=== PATIENT | female | born 1950 ===

== ENCOUNTER 2018-03-28 14:54 | Emergency (ER) | payer MEDICAID, OTHER ==
[2018-03-28 15:26] VITALS: RESP 18; TEMP 98; BMI 25.2
[2018-03-28] MEDS ORDERED: TDAP Vaccine 0.5 mL Syr IM ONE (15:28)
[2018-03-28] MEDS ORDERED: Tmp-Smz 800 mg-160 mg DS Tab PO STA (15:39)
--- NOTE | 2018-03-28 15:43 | ED PDOC ---
Arrival/HPI - General Chief Complaint: Abnormal Skin Integrity Time Seen by Provider: 03/28/18 15:14 Historian: Patient EM Caveat: Language Barrier (hebrew speaking) - History of Present Illness Narrative History of Present Illness (Text): 03/28/18 15:17 pt p/w 4 days onset of worsening b/l arm rashes; pt was in the yard working with his friend clearing a bunch of bushes/plants; pt was wearing a short sleeve shirt; pt states the next day noticed the rashes, + puritic, pt used OTC poison farnk medications without any improvements; pt states he noted some blisters and it popped with some yellow/clear discharge; non-bloody; no fever/ chills/sweats, no cp/sob/palpitations, no abd pain, no n/v, no numbness/tingling , no fall/trauma/sick contact, no travel; pt arrived today for further eval; pt' s without other complaints. PCP: NONE tetanus: unknown status Time/Duration: < week (4 days) Symptom Onset: Sudden Symptom Course: Worsening Severity Level: Severe Activities at Onset: Rest Context: Home Past Medical History - Provider Review Nursing Documentation Reviewed: Yes - Travel History Have you recently traveled outside [place] w/in the past 3 mons?: No - Past History Past History: No Previous - Infectious Disease Hx of Infectious Diseases: None - Tetanus Immunization Tetanus Immunization: Unknown - Reproductive Menopause: No Currently : No Family/Social History - Physician Review Nursing Documentation Reviewed: Yes Family/Social History: No Known Family HX Smoking Status: Unknown If Ever Smoked Hx Alcohol Use: No Hx Substance Use: No Hx Substance Use Treatment: No Allergies/Home Meds Allergies/Adverse Reactions: Allergies No Known Allergies Allergy (Verified 03/28/18 15:27) Review of Systems - Review of Systems Constitutional: Normal Eyes: Normal ENT: Normal Respiratory: Normal. absent: SOB Cardiovascular: Normal. absent: Chest Pain, Syncope Gastrointestinal: Normal. absent: Abdominal Pain, Nausea, Vomiting Genitourinary Female: Normal Musculoskeletal: Normal Skin: Rash, Pruritis, Skin Lesions. absent: Laceration, Abscess, Cellulitis Neurological: absent: Headache, Dizziness, Speech Changes Endocrine: Normal. absent: Diaphoresis Hemo/Lymphatic: Normal. absent: Adenopathy Psychiatric: Normal Physical Exam - Physical Exam Narrative Physical Exam (Text): 03/28/18 15:15 General: alert/awake, GCS = 15, oriented x 3, sitting in bed, uncomfortable, cooperative, interactive; NAD Head: NC/AT EYE: PERRLA, EOMI, sclera anicteric, no nystagmus, no photophobia; visual field intact b/l Facial: WNL Oral: uvula/tongue are midline, no exudate/lesions, no drooling/stridor, no dysphonia; intact dentitions; moist oral mucosa NECK: intact ROM, no midline tenderness, no nuchal rigidity, no meningeal signs ; no step off Chest: CTA b/l, no w/r/r; no tachypenia, no accessory muscle use noted Chest Wall: no crepitus, no lesions, no gross deformities, no focal tenderness Cardiac: +S1, +S2, no m/r/r, no tachycardia Abdominal: +BS, soft/nd/nt, well nourished patient; no masses/rebound/guarding/ rigidity; no norwood's sign, no mcburney's point tenderness Extremities: intact ROM, strength 5/5 grossly intact in all limbs, neurovasc intact b/l; + ambulatory; reflex +2/2 BACK: no step off, no midline tenderness, NO crepitus, no gross deformities noted; Intact ROM SKIN: cap refill < 1 sec, + clusters of faintly ulcerated lesions to right mid forearm, no petechiae, non-tender, + diffuse b/l forearm skin rashes with erythematous base and raised blister-like lesions; NON-fluctuant/non-weeping, non-painful up to near elbow region; + mildly puritic; NO NIKOSKY's sign noted; no discharge is noted currently NEURO: CNII-XII WNL, no facial asymmetries, no slurr speech, oriented x 3 NIH stroke scale ~ 0 Psych: normal insight, normal affect; follows command with ease Vital Signs Temp Pulse Resp BP Pulse Ox 03/28/18 16:20 98 F 75 18 140/68 98 03/28/18 16:17 75 18 144/75 100 03/28/18 15:25 98 F 79 18 156/87 H 100 Temperature: Afebrile Blood Pressure: Hypertensive Pulse: Regular Respiratory Rate: Normal Appearance: Positive for: Well-Appearing, Non-Toxic, Uncomfortable. No: Ill- Appearing, Unkept Pain Distress: None Mental Status: Positive for: Alert and Oriented X 3 - Systems Exam Head: Present: Atraumatic, Normocephalic Medical Decision Making ED Course and Treatment: 03/28/18 15:15 Impression: arm rashes i have consider all the differential diagnosis regarding pt's chief medical complaints/clinical findings, including but are not limited to: b/l arm rashes A/P: likely contact dermatitis - uptdate on tetanus - supportive care - observe/reevaluation Re-evaluation Time: 15:45 Reassessment Condition: Unchanged - Medication Orders Current Medication Orders: Discontinued Medications Diphenhydramine HCl (Benadryl) 25 mg PO ONCE ONE Stop: 03/28/18 15:34 Last Admin: 03/28/18 16:06 Dose: 25 mg Prednisone (Prednisone Tab) 60 mg PO STAT ONE Stop: 03/28/18 15:33 Last Admin: 03/28/18 16:07 Dose: 60 mg Tetanus/Reduced Diphtheria/Acell Pertussis (Boostrix Vaccine Inj) 0.5 ml IM .ONCE ONE Stop: 03/28/18 15:29 Last Admin: 03/28/18 16:07 Dose: 0.5 ml [facility] Immunization Data Document 03/28/18 16:07 [place] (Rec: 03/28/18 16:08 [place] [id number]) Immunization Data Vaccine Information Sheet Given Yes Trimethoprim/Sulfamethoxazole (Bactrim Ds Tab) 1 tab PO STAT STA PRN Reason: Protocol Stop: 03/28/18 15:40 Last Admin: 03/28/18 16:07 Dose: 1 tab Disposition/Present on Arrival - Present on Arrival Any Indicators Present on Arrival: No History of DVT/PE: No History of Uncontrolled Diabetes: No Urinary Catheter: No History of Decub. Ulcer: No History Surgical Site Infection Following: None - Disposition Have Diagnosis and Disposition been Completed?: Yes Diagnosis: Contact dermatitis, Rash, Elevated blood pressure reading Disposition: HOME/ ROUTINE Disposition Time: 15:55 Patient Plan: Discharge Condition: STABLE Discharge Instructions (ExitCare): Contact Dermatitis (DC), Skin Rash, Prehypertension, Hypertension (ED) Print Language: YI Additional Instructions: Make sure to see your doctor in 1-2 days DRINK PLENTY OF FLUIDS take your medications as prescribed DONT SCRACTH YOUR SKIN DONT POP any blisters KEEP OUT OF THE SUN WEAR LONG SLEEVE SHIRTS RETURN TO ED IF worse pain, cant breath, skin discoloration; persistent vomiting , high fever >101-102 for hours, altered behavior, slurr speech, facial changes , focal weakness (arm/leg or both), unable to urinate, heavy/persistent bleeding , passing out, chest pain, or other medical emergencies Prescriptions: DiphenhydrAMINE [Benadryl] 25 mg PO TID PRN #30 cap PRN Reason: Itching / Pruritus predniSONE [predniSONE Tab] 2 tab PO DAILY #8 tab Sulfamethoxazole/Trimethoprim [Bactrim DS 800 mg-160 mg] 1 tab PO BID #13 tab Triamcinolone 0.025 % [Triamcinolone 0.025 % Cream] 1 appl EXT BID #1 tube Referrals: PCP,NO [Primary Care Provider] - Follow up with primary [email or web address] [place] [Outside] - Follow up with primary [facility] [Outside] - Follow up with primary [facility] [place] - Follow up with primary Forms: [employer] (Kosovan)
[2018-03-28 16:18] VITALS: PULSE 75
[2018-03-28 16:37] VITALS: BP 140/68; O2SAT 98
== END 2018-03-28 16:20 | disposition home or self-care (01) ==
LOC: ED 14:54
DX: L25.9 Unspecified contact dermatitis, unspecified cause (principal); R03.0 Elevated blood-pressure reading, without diagnosis of hypertension; Z23 Encounter for immunization

== ENCOUNTER 2018-11-30 14:17 | Inpatient (IN) | payer MEDICAID, OTHER ==
[2018-11-30 14:18] VITALS: BMI 24.3
--- NOTE | 2018-11-30 14:30 | ED PDOC ---
Arrival/HPI - General Historian: Patient, Family - History of Present Illness Narrative History of Present Illness (Text): 11/30/18 15:18 68 y/o male with PSH of right inguinal hernia repair 2 weeks ago presents to the ED as he was concerned of red colored discharge coming out of surgical incision. He denied fever, chills, nausea, vomiting, abdominal pain, changes in bowel movement. He ambulates with no difficulty and pain is controlled with Ibuprofen. Patient was seen by his surgeon at [facility] yesterday for post-op follow up and he was assured by the surgeon. Patient denied CP, SOB, headache, dizziness, urinary symptoms, focal neurological symptoms. Time/Duration: 24 hours Context: Home <Rich [place] - Last Filed: 11/30/18 19:25> <Marcial Aguero - Last Filed: 11/30/18 19:44> - General Chief Complaint: Wound Check Time Seen by Provider: 11/30/18 14:21 Past Medical History - Provider Review Nursing Documentation Reviewed: Yes - Past History Past History: No Previous - Infectious Disease Hx of Infectious Diseases: None - Tetanus Immunization Tetanus Immunization: Unknown - Cardiac Hx Cardiac Disorders: No - Pulmonary Hx Respiratory Disorders: No - Neurological Hx Neurological Disorder: No - HEENT Hx HEENT Disorder: No - Renal Hx Renal Disorder: No - Endocrine/Metabolic Hx Endocrine Disorders: Yes Hx Diabetes Mellitus Type 2: Yes - Hematological/Oncological Hx Blood Disorders: No - Integumentary Hx Dermatological Disorder: No - Musculoskeletal/Rheumatological Hx Musculoskeletal Disorders: No - Gastrointestinal Hx Gastrointestinal Disorders: No - Genitourinary/Gynecological Hx Genitourinary Disorders: No - Psychiatric Hx Psychophysiologic Disorder: No Hx Substance Use: No - Surgical History Hx Inguinal Hernia Repair: Yes (11/19/18) - Anesthesia Hx Anesthesia: No <Rich Beach - Last Filed: 11/30/18 19:25> Family/Social History - Physician Review Nursing Documentation Reviewed: Yes Family/Social History: No Known Family HX Smoking Status: Never Smoked Hx Alcohol Use: Yes Hx Substance Use: No Hx Substance Use Treatment: No <Rich Beach - Last Filed: 11/30/18 19:25> Allergies/Home Meds <Rich [place] - Last Filed: 11/30/18 19:25> <Marcial Aguero - Last Filed: 11/30/18 19:44> Allergies/Adverse Reactions: Allergies No Known Allergies Allergy (Verified 06/10/18 13:46) Home Medications: Home Meds Medication Instructions Recorded Confirmed No Known Home Med 06/10/18 06/10/18 Review of Systems - Review of Systems Constitutional: Normal. absent: Fevers, Night Sweats Eyes: Normal ENT: Normal Respiratory: Normal Cardiovascular: Normal Gastrointestinal: Normal. absent: Abdominal Pain, Stool Changes, Constipation, Diarrhea, Nausea, Vomiting, Hematochezia, Hematemesis Genitourinary Male: Normal. absent: Dysuria, Frequency, Hematuria Musculoskeletal: Normal Skin: Normal Neurological: Normal Endocrine: Normal Hemo/Lymphatic: Normal Psychiatric: Normal <Rich Beach - Last Filed: 11/30/18 19:25> Physical Exam Vital Signs Reviewed: Yes Temperature: Afebrile Blood Pressure: Normal Pulse: Regular Respiratory Rate: Normal Appearance: Positive for: Well-Appearing, Non-Toxic, Comfortable Pain Distress: None Mental Status: Positive for: Alert and Oriented X 3 - Systems Exam Head: Present: Atraumatic, Normocephalic Pupils: Present: PERRL Extroacular Muscles: Present: EOMI Conjunctiva: Present: Normal Mouth: Present: Moist Mucous Membranes Neck: Present: Normal Range of Motion Respiratory/Chest: Present: Clear to Auscultation, Good Air Exchange. No: Respiratory Distress, Accessory Muscle Use Cardiovascular: Present: Regular Rate and Rhythm, Normal S1, S2 Abdomen: Present: Normal Bowel Sounds, Scars (right grion surgical incision, clean, non tender, no erythema, +discharge, no pus). No: Tenderness, Distention, Rebound, Guarding Upper Extremity: Present: Normal Inspection. No: Edema Lower Extremity: Present: Normal Inspection. No: Edema Neurological: Present: GCS=15, CN II-XII Intact, Speech Normal Skin: Present: Warm, Dry, Normal Color. No: Rashes Psychiatric: Present: Alert, Oriented x 3, Normal Insight <Rich Beach - Last Filed: 11/30/18 19:25> Vital Signs Temp Pulse Resp BP Pulse Ox 11/30/18 17:06 98.1 F 61 16 134/69 100 11/30/18 14:38 98.2 F 76 18 141/72 100 <Marcial Aguero - Last Filed: 11/30/18 19:44> Medical Decision Making ED Course and Treatment: 11/30/18 18:54 patient seen fir right lower groin pain and discharge stemming from postop wound for inguinal hernia surgery at [facility]. 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 Case was consulted and discussed with surgery and states will keep patient in hospital for dr. benjamin to see patient in the morning to determine surgical course. 11/30/18 19:[address] lopez to the hospitalist service. - RAD Interpretation Narrative RAD Interpretations (Text): EXAM: CT Pelvis and Hip, right, without IV contrast. Electronically signed on Nov 30, 2018 6:06:08 PM EST by: Oliver Landis M.D., IMPRESSION: 1. 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 2. Prostatic hypertrophy. 3. Incidental discovery of a 1.1 cm bone island in the right femoral head. Radiology Orders: 11/30/18 15:36 PELVIS W/O PO OR IV CONTRAST [CT] Stat Associate Professor Of Medicine: Radiologist <Marcial Aguero - Last Filed: 11/30/18 19:44> Disposition/Present on Arrival - Present on Arrival Any Indicators Present on Arrival: No History of DVT/PE: No History of Uncontrolled Diabetes: No Urinary Catheter: No History Surgical Site Infection Following: None - Disposition Patient Plan: Discharge <Rich Beach - Last Filed: 11/30/18 19:25> - Disposition Have Diagnosis and Disposition been Completed?: Yes Disposition Time: 18:56 Patient Plan: Admission <Marcial Aguero - Last Filed: 11/30/18 19:44> - Disposition Diagnosis: Post-operative complication, Postoperative wound abscess, Enterocutaneous fistula Disposition: HOSPITALIZED Patient Problems: Current Active Problems Problem Status Onset Post-operative complication Acute Postoperative wound abscess Acute Enterocutaneous fistula Acute Condition: STABLE Referrals: FAMILY PROVIDER,NO [Primary Care Provider] - Follow up with primary Forms: [employer] (Faroese)
[2018-11-30 16:03] LABS: BASO # 0.05 K/mm3 (0.0-2.0); BASO % 0.6 % (0.0-3.0); EOS # 0.2 (0.0-0.7); EOS % 1.9 % (1.5-5.0); HEMOGLOBIN 12.7 g/dL (14.0-18.0); LYMPH # 2.5 (1.2-3.4); LYMPH % 30.9 % (22.0-35.0); MEAN CELL VOLUME 91.1 fl (80.0-105.0); MEAN CORPUSCULAR HEMOGLOBIN 29.8 pg (25.0-35.0); MEAN CORPUSCULAR HGB CONC 32.7 g/dl (31.0-37.0); MEAN PLATELET VOLUME 9.7 fl (7.0-11.0); MONO # 0.4 (0.1-0.6); MONO % 4.5 % (1.0-6.0); RBC 4.26 10^6/uL (3.5-6.1); WHITE BLOOD COUNT 8.1 10^3/uL (4.5-11.0)
[2018-11-30 16:14] LABS: BLOOD UREA NITROGEN 16 mg/dL (7-21); CALCIUM 9.5 mg/dL (8.4-10.5); GFR NON-AFRICAN AMERICAN > 60
[2018-11-30] MEDS ORDERED: Piperacillin/Tazobact 3.375 gm 100 ML IVPB STA (18:52)
[2018-11-30] MEDS ORDERED: Vancomycin 500 mg Inj IVPB STA (18:52)
[2018-11-30] MEDS ORDERED: Vancomycin 1gm in NS 250ml 1 GM/250 ML BAG IVPB STA (18:54)
--- NOTE | 2018-11-30 19:05 | CP.PCM.CON ---
<GaDelores evans - Last Filed: 12/01/18 20:19> History of Present Illness - History of Present Illness History of Present Illness: General surgery consult note for Dr. Jansen Consulted for sanguinopurulent drainage from recent surgical site Patient is a 68 M with PMH Dm who recently underwent open Right inguinal hernia repair at [facility] 10 days ago. Patient was recently seen by his surgeon earlier this week but became concerned when he began to have discharge form the incision site today. Patient otherwise denies any f/c, n/v, abdominal pain, pain at the incision site, and change in stools. PMH: DM PSH: POD from open R inguinal hernia All: NKDA Social: denies Review of Systems - Review of Systems All systems: reviewed and no additional remarkable complaints except (as per HPI) Past Patient History - Infectious Disease Hx of Infectious Diseases: None - Tetanus Immunizations Tetanus Immunization: Unknown - Past Social History Smoking Status: Never Smoked - CARDIAC Hx Cardiac Disorders: No - PULMONARY Hx Respiratory Disorders: No - NEUROLOGICAL Hx Neurological Disorder: No - HEENT Hx HEENT Problems: No - RENAL Hx Chronic Kidney Disease: No - ENDOCRINE/METABOLIC Hx Endocrine Disorders: Yes Hx Diabetes Mellitus Type 2: Yes - HEMATOLOGICAL/ONCOLOGICAL Hx Blood Disorders: No - INTEGUMENTARY Hx Dermatological Problems: No - MUSCULOSKELETAL/RHEUMATOLOGICAL Hx Musculoskeletal Disorders: No - GASTROINTESTINAL Hx Gastrointestinal Disorders: No - GENITOURINARY/GYNECOLOGICAL Hx Genitourinary Disorders: No - PSYCHIATRIC Hx Psychophysiologic Disorder: No Hx Substance Use: No - SURGICAL HISTORY Hx Surgeries: No - ANESTHESIA Hx Anesthesia: No Meds Home Medications: Home Medication List Medication Instructions Recorded Confirmed Type Amoxicillin/Clavulanate [Augmentin 1 tab PO BID 7 Days #14 tab 12/01/18 Rx 500 MG-125 MG] Clindamycin [Cleocin] 300 mg PO TID 7 Days #21 cap 12/01/18 Rx Allergies/Adverse Reactions: Allergies Allergy/AdvReac Type Severity Reaction Status Date / Time No Known Allergies Allergy Verified 06/10/18 13:46 - Medications Medications: Current Medications Piperacillin Sod/Tazobactam Sod (Zosyn 3.375 In Ns 100ml) 100 mls @ 200 mls/hr IVPB STAT STA; Protocol Stop: 11/30/18 19:21 Vancomycin HCl (Vancomycin 1gm) 1 gm in 250 mls @ 167 mls/hr IVPB STAT STA Stop: 11/30/18 20:23 Physical Exam - Constitutional Appears: Well, Non-toxic, No Acute Distress - Eye Exam Eye Exam: EOMI - ENT Exam ENT Exam: Mucous Membranes Moist - Respiratory Exam Respiratory Exam: NORMAL BREATHING PATTERN - Cardiovascular Exam Cardiovascular Exam: REGULAR RHYTHM - GI/Abdominal Exam GI & Abdominal Exam: Soft. absent: Guarding, Tenderness Additional comments: right inguinal incision with mild welling and erythema no fluctuance or crepitus, small amount of sanguinopurulent fluid expressed - Extremities Exam Extremities exam: Negative for: calf tenderness - Neurological Exam Neurological exam: Alert, Oriented x3 - Psychiatric Exam Psychiatric exam: Normal Affect, Normal Mood - Skin Skin Exam: Dry, Erythema, Warm Additional comments: right ingiunal incision with mild welling and erythema no fluctuance or crepitus, small amount of sanguinopurulent fluid expressed, incision appears to be generally intact with no overtly open areas Results - Vital Signs Recent Vital Signs: Last Vital Signs Temp 98.1 F 11/30/18 17:06 Pulse 61 11/30/18 17:06 Resp 16 11/30/18 17:06 BP 134/69 11/30/18 17:06 Pulse Ox 100 11/30/18 17:06 - Labs Result Diagrams: 12/01/18 07:00 12/01/18 07:00 Labs: Laboratory Results - last 24 hr 11/30/18 11/30/18 15:58 15:58 WBC 8.1 RBC 4.26 Hgb 12.7 L Hct 38.8 L MCV 91.1 MCH 29.8 MCHC 32.7 RDW 13.0 Plt Count 341 MPV 9.7 Neut % (Auto) 62.1 Lymph % (Auto) 30.9 Pine % (Auto) 4.5 Eos % (Auto) 1.9 Baso % (Auto) 0.6 Lymph # (Auto) 2.5 Pine # (Auto) 0.4 Eos # (Auto) 0.2 Baso # (Auto) 0.05 Absolute Neuts (auto) 5.01 Sodium 138 Potassium 4.5 Chloride 100 Carbon Dioxide 30 Anion Gap 13 BUN 16 Creatinine 0.6 L Est GFR ( Amer) > 60 Est GFR (Non-Af Amer) > 60 Random Glucose 138 H Calcium 9.5 Assessment & Plan - Assessment and Plan (Free Text) Assessment: 68 yr old male s/p open right inguinal hernia repair POD 12 with chino- purulent discharge from incision, CT finding of enterocutaneous fistula and abscess formation Plan: - Vanc and zosyn - IVF - monitor closely for systemic signs of infection - discussed with Dr. Justyna Ga, PGY 1 - Date & Time Date: 11/30/18 Time: 15:35 <Thaddeus Jansen - Last Filed: 12/01/18 21:46> Meds - Medications Medications: Current Medications Acetaminophen (Tylenol 325mg Tab) 650 mg PO Q6H PRN PRN Reason: Pain, Mild (1-3) Last Admin: 12/01/18 20:17 Dose: 650 mg Sodium Chloride (Sodium Chloride 0.9%) 1,000 mls @ 100 mls/hr IV .Q10H MALCOLM Last Admin: 12/01/18 10:07 Dose: 100 mls/hr Vancomycin HCl (Vancomycin 1gm) 1 gm in 250 mls @ 167 mls/hr IVPB Q12H MALCOLM; Protocol Last Admin: 12/01/18 20:17 Dose: 167 mls/hr Cefepime HCl (Maxipime 1gm) 1 gm in 100 mls @ 100 mls/hr IVPB Q8 MALCOLM; Protocol Stop: 12/09/18 14:01 Last Admin: 12/01/18 14:13 Dose: 100 mls/hr Insulin Human Regular (Humulin R Low) 0 units SC ACHS MALCOLM; Protocol Last Admin: 12/01/18 16:55 Dose: Not Given Metronidazole (Flagyl) 500 mg PO Q8 MALCOLM; Protocol Stop: 12/08/18 14:01 Last Admin: 12/01/18 14:13 Dose: 500 mg Pantoprazole Sodium (Protonix Ec Tab) 40 mg PO 0600 MALCOLM Last Admin: 12/01/18 05:57 Dose: 40 mg Results - Vital Signs Recent Vital Signs: Last Vital Signs Temp 97.7 F 12/01/18 14:00 Pulse 61 12/01/18 14:00 Resp 20 12/01/18 14:00 BP 108/63 12/01/18 14:00 Pulse Ox 98 12/01/18 14:00 - Labs Result Diagrams: 12/01/18 07:00 12/01/18 07:00 Labs: Laboratory Results - last 24 hr 11/30/18 11/30/18 12/01/18 17:00 22:15 06:41 WBC RBC Hgb Hct MCV MCH MCHC RDW Plt Count MPV Neut % (Auto) Lymph % (Auto) Pine % (Auto) Eos % (Auto) Baso % (Auto) Lymph # (Auto) Pine # (Auto) Eos # (Auto) Baso # (Auto) Absolute Neuts (auto) PT 11.3 INR 1.02 APTT 33.3 Sodium Potassium Chloride Carbon Dioxide Anion Gap BUN Creatinine Est GFR ( Amer) Est GFR (Non-Af Amer) POC Glucose (mg/dL) 228 H 159 H Random Glucose Calcium Phosphorus Magnesium Total Bilirubin AST ALT Alkaline Phosphatase Total Protein Albumin Globulin Albumin/Globulin Ratio 12/01/18 12/01/18 12/01/18 07:00 07:00 10:51 WBC 7.0 RBC 4.11 Hgb 12.1 L Hct 37.3 L MCV 90.8 MCH 29.4 MCHC 32.4 RDW 12.9 Plt Count 321 MPV 9.8 Neut % (Auto) 60.5 Lymph % (Auto) 28.9 Pine % (Auto) 6.9 H Eos % (Auto) 3.3 Baso % (Auto) 0.4 Lymph # (Auto) 2.0 Pine # (Auto) 0.5 Eos # (Auto) 0.2 Baso # (Auto) 0.03 Absolute Neuts (auto) 4.24 PT INR APTT Sodium 139 Potassium 4.2 Chloride 101 Carbon Dioxide 28 Anion Gap 14 BUN 17 Creatinine 0.7 L Est GFR ( Amer) > 60 Est GFR (Non-Af Amer) > 60 POC Glucose (mg/dL) 180 H Random Glucose 166 H Calcium 8.9 Phosphorus 3.7 Magnesium 2.1 Total Bilirubin 0.7 AST 17 ALT 14 Alkaline Phosphatase 80 Total Protein 6.6 Albumin 3.8 Globulin 2.8 Albumin/Globulin Ratio 1.4 12/01/18 16:15 WBC RBC Hgb Hct MCV MCH MCHC RDW Plt Count MPV Neut % (Auto) Lymph % (Auto) Pine % (Auto) Eos % (Auto) Baso % (Auto) Lymph # (Auto) Pine # (Auto) Eos # (Auto) Baso # (Auto) Absolute Neuts (auto) PT INR APTT Sodium Potassium Chloride Carbon Dioxide Anion Gap BUN Creatinine Est GFR ( Amer) Est GFR (Non-Af Amer) POC Glucose (mg/dL) 140 H Random Glucose Calcium Phosphorus Magnesium Total Bilirubin AST ALT Alkaline Phosphatase Total Protein Albumin Globulin Albumin/Globulin Ratio Attending/Attestation - Attestation I have personally seen and examined this patient.: Yes I have fully participated in the care of the patient.: Yes I have reviewed all pertinent clinical information: Yes Notes (Text): Pt was seen and examined at bedside Agree with above note and assessment Pt with right inguinal wound infection s/p hernia repair Abdomen: Soft, NT, ND, Right inguinal wound redness Labs and radiology reviewed Ass: No clinical evidence of EC fistula or Abscess Pt has seroma of wound. Plan: I & D at bedside Wound C/S C.w IV antibiotics Pt can bed DC home with PO antibiotic to f/u with at [facility] as out pt Plan d.w pt in detail Risk and benefit explained in detail.
--- NOTE | 2018-11-30 20:43 | CP.PCM.HP ---
<Justin De La Cruz - Last Filed: 12/01/18 00:19> History of Present Illness - History of Present Illness History of Present Illness: Justin De La Cruz, PGY1 Medicine H&P for Dr. Romero cc: "red colored discharge from recent R-inguinal hernia repair 2 weeks ago" Patient is a 68 y/o Citizen Of [place] Speaking Male with PMHx DM who presented to the ED for red colored discharge from R-inguinal hernia repair that was done 2 weeks ago. Medical team evaluated patient in the ED. Patient said he followed up with his surgeon at [facility] (Dr. Alvares) two days prior and there were no issues with his incision site. However, patient mentioned that red-colored drainage only started to occur one day ago. He also endorsed some drainage of pus at the lateral aspect of the incision site. Patient also had increased pain and s welling at the site. He has no difficulty with ambulation. He denies fever, chills, n/v/d, cp, sob, lightheadedness, dizziness, bowel/bladder changes. A full 12 point ROS was conducted and unremarkable except as stated above. PMHx: DM PSHx: R-inguinal hernia repair (2 weeks ago) Meds: metformin 850 mg PO daily Allergies: NKDA FamHx: sister with heart disease SocialHx: denies smoking, drinking, and recreational drug use. Lives at home with family. Present on Admission - Present on Admission Any Indicators Present on Admission: No Review of Systems - Review of Systems All systems: reviewed and no additional remarkable complaints except (as per HPI) Past Patient History - Infectious Disease Hx of Infectious Diseases: None - Tetanus Immunizations Tetanus Immunization: Unknown - Past Social History Smoking Status: Never Smoked - CARDIAC Hx Cardiac Disorders: No - PULMONARY Hx Respiratory Disorders: No - NEUROLOGICAL Hx Neurological Disorder: No - HEENT Hx HEENT Problems: No - RENAL Hx Chronic Kidney Disease: No - ENDOCRINE/METABOLIC Hx Endocrine Disorders: Yes Hx Diabetes Mellitus Type 2: Yes - HEMATOLOGICAL/ONCOLOGICAL Hx Blood Disorders: No - INTEGUMENTARY Hx Dermatological Problems: No - MUSCULOSKELETAL/RHEUMATOLOGICAL Hx Musculoskeletal Disorders: No - GASTROINTESTINAL Hx Gastrointestinal Disorders: No - GENITOURINARY/GYNECOLOGICAL Hx Genitourinary Disorders: No - PSYCHIATRIC Hx Psychophysiologic Disorder: No Hx Substance Use: No - SURGICAL HISTORY Hx Surgeries: No - ANESTHESIA Hx Anesthesia: No Meds Allergies/Adverse Reactions: Allergies Allergy/AdvReac Type Severity Reaction Status Date / Time No Known Allergies Allergy Verified 06/10/18 13:46 Physical Exam - Constitutional Appears: No Acute Distress - Head Exam Head Exam: ATRAUMATIC, NORMAL INSPECTION, NORMOCEPHALIC - Eye Exam Eye Exam: EOMI, Normal appearance Pupil Exam: NORMAL ACCOMODATION - ENT Exam ENT Exam: Mucous Membranes Moist - Neck Exam Neck exam: Positive for: Normal Inspection - Respiratory Exam Respiratory Exam: Clear to Auscultation Bilateral, NORMAL BREATHING PATTERN. absent: Accessory Muscle Use, Chest Wall Tenderness, Rales, Rhonchi, Wheezes - Cardiovascular Exam Cardiovascular Exam: REGULAR RHYTHM, +S1, +S2. absent: Systolic Murmur - GI/Abdominal Exam GI & Abdominal Exam: Normal Bowel Sounds, Soft. absent: Distended, Firm, Guarding, Rigid, Tenderness - Exam Additional comments: R-groin incision from recent hernia repair. Mildly erythematous with swelling; no fluctuation. Pain to palpation at site. No drainage or pus noted. Incision site is intact. - Extremities Exam Extremities exam: Positive for: normal inspection. Negative for: normal capillary refill, pedal pulses present - Back Exam Back exam: NORMAL INSPECTION - Neurological Exam Neurological exam: Alert, CN II-XII Intact, Oriented x3, Reflexes Normal - Psychiatric Exam Psychiatric exam: Normal Affect, Normal Mood - Skin Skin Exam: Dry, Intact, Normal Color, Warm Results - Vital Signs Recent Vital Signs: Last Vital Signs Temp 98.1 F 11/30/18 17:06 Pulse 77 11/30/18 19:29 Resp 18 11/30/18 19:29 BP 98/52 L 11/30/18 19:29 Pulse Ox 97 11/30/18 19:29 - Labs Result Diagrams: 11/30/18 15:58 11/30/18 15:58 Labs: Laboratory Results - last 24 hr 11/30/18 11/30/18 15:58 15:58 WBC 8.1 RBC 4.26 Hgb 12.7 L Hct 38.8 L MCV 91.1 MCH 29.8 MCHC 32.7 RDW 13.0 Plt Count 341 MPV 9.7 Neut % (Auto) 62.1 Lymph % (Auto) 30.9 [place] % (Auto) 4.5 Eos % (Auto) 1.9 Baso % (Auto) 0.6 Lymph # (Auto) 2.5 [place] # (Auto) 0.4 Eos # (Auto) 0.2 Baso # (Auto) 0.05 Absolute Neuts (auto) 5.01 Sodium 138 Potassium 4.5 Chloride 100 Carbon Dioxide 30 Anion Gap 13 BUN 16 Creatinine 0.6 L Est GFR ( Amer) > 60 Est GFR (Non-Af Amer) > 60 Random Glucose 138 H Calcium 9.5 Assessment & Plan - Assessment and Plan (Free Text) Assessment: Patient is a 68 y/o Citizen Of [place] Speaking Male with PMHx DM who presented to the ED for red colored discharge from R-inguinal hernia repair that was done 2 weeks ago. Patient will be admitted to med/surg. Surgery is on consult. 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 Jansen). Follow up recs - f/u Blood Cx - Wound Cx as per surgical team - Pre-op labs ordered - PT/PTT, EKG, CXR - CT Hip/Pelvis: enterocutaenous fistula and abscess. - Hx recent R-inguinal hernia repair 2 weeks ago DM - ISS (low) - Accuchecks DVT ppx: scd GI ppx: PTX Dispo: Admit patient to the floor. Follow up recs from surgical team. Case was discussed and reviewed with Attending Physician, Dr. Romero <Shanika Romero - Last Filed: 12/02/18 06:21> Results - Vital Signs Recent Vital Signs: Last Vital Signs Temp 98.1 F 12/01/18 22:00 Pulse 61 12/01/18 22:00 Resp 20 12/01/18 22:00 BP 113/71 12/01/18 22:00 Pulse Ox 98 12/01/18 22:00 - Labs Result Diagrams: 12/01/18 07:00 12/01/18 07:00 Labs: Laboratory Results - last 24 hr 11/30/18 12/01/18 12/01/18 22:15 06:41 07:00 WBC 7.0 RBC 4.11 Hgb 12.1 L Hct 37.3 L MCV 90.8 MCH 29.4 MCHC 32.4 RDW 12.9 Plt Count 321 MPV 9.8 Neut % (Auto) 60.5 Lymph % (Auto) 28.9 [place] % (Auto) 6.9 H Eos % (Auto) 3.3 Baso % (Auto) 0.4 Lymph # (Auto) 2.0 [place] # (Auto) 0.5 Eos # (Auto) 0.2 Baso # (Auto) 0.03 Absolute Neuts (auto) 4.24 Sodium Potassium Chloride Carbon Dioxide Anion Gap BUN Creatinine Est GFR ( Amer) Est GFR (Non-Af Amer) POC Glucose (mg/dL) 228 H 159 H Random Glucose Calcium Phosphorus Magnesium Total Bilirubin AST ALT Alkaline Phosphatase Total Protein Albumin Globulin Albumin/Globulin Ratio 12/01/18 12/01/18 12/01/18 07:00 10:51 16:15 WBC RBC Hgb Hct MCV MCH MCHC RDW Plt Count MPV Neut % (Auto) Lymph % (Auto) [place] % (Auto) Eos % (Auto) Baso % (Auto) Lymph # (Auto) [place] # (Auto) Eos # (Auto) Baso # (Auto) Absolute Neuts (auto) Sodium 139 Potassium 4.2 Chloride 101 Carbon Dioxide 28 Anion Gap 14 BUN 17 Creatinine 0.7 L Est GFR ( Amer) > 60 Est GFR (Non-Af Amer) > 60 POC Glucose (mg/dL) 180 H 140 H Random Glucose 166 H Calcium 8.9 Phosphorus 3.7 Magnesium 2.1 Total Bilirubin 0.7 AST 17 ALT 14 Alkaline Phosphatase 80 Total Protein 6.6 Albumin 3.8 Globulin 2.8 Albumin/Globulin Ratio 1.4 12/01/18 21:43 WBC RBC Hgb Hct MCV MCH MCHC RDW Plt Count MPV Neut % (Auto) Lymph % (Auto) [place] % (Auto) Eos % (Auto) Baso % (Auto) Lymph # (Auto) [place] # (Auto) Eos # (Auto) Baso # (Auto) Absolute Neuts (auto) Sodium Potassium Chloride Carbon Dioxide Anion Gap BUN Creatinine Est GFR ( Amer) Est GFR (Non-Af Amer) POC Glucose (mg/dL) 108 Random Glucose Calcium Phosphorus Magnesium Total Bilirubin AST ALT Alkaline Phosphatase Total Protein Albumin Globulin Albumin/Globulin Ratio Attending/Attestation - Attestation I have personally seen and examined this patient.: Yes I have fully participated in the care of the patient.: Yes I have reviewed all pertinent clinical information: Yes
[2018-11-30 21:49] LABS: INR 1.02; PROTHROMBIN TIME 11.3 SECONDS (9.4-12.5)
[2018-11-30 21:50] LABS: PARTIAL THROMBOPLASTIN TIME 33.3 Seconds (26.9-38.3)
[2018-11-30] MEDS ORDERED: Piperacillin/Tazobact 3.375 gm 100 ML IVPB SCH (22:00)
[2018-11-30] MEDS: Sodium Chloride 0.9% 1,000 ML IV SCH (22:13)
[2018-11-30] MEDS: Insulin Reg-LOW-Coverage SC SCH (22:18)
[2018-11-30] MEDS: Vancomycin 1gm in NS 250ml 1 GM/250 ML BAG IVPB SCH (22:18)
[2018-12-01] MEDS ORDERED: Pneumococcal 23-Valent Vaccine IM ONE (02:11)
[2018-12-01] MEDS: Pantoprazole 40 mg EC Tab PO SCH (05:57)
[2018-12-01 07:45] LABS: BASO # 0.03 K/mm3 (0.0-2.0); BASO % 0.4 % (0.0-3.0); EOS # 0.2 (0.0-0.7); EOS % 3.3 % (1.5-5.0); HEMOGLOBIN 12.1 g/dL (14.0-18.0); LYMPH % 28.9 % (22.0-35.0); MEAN CELL VOLUME 90.8 fl (80.0-105.0); MEAN CORPUSCULAR HEMOGLOBIN 29.4 pg (25.0-35.0); MEAN CORPUSCULAR HGB CONC 32.4 g/dl (31.0-37.0); MEAN PLATELET VOLUME 9.8 fl (7.0-11.0); MONO # 0.5 (0.1-0.6); MONO % 6.9 % (1.0-6.0); RBC 4.11 10^6/uL (3.5-6.1); RED CELL DISTRIBUTION WIDTH 12.9 % (11.5-14.5)
[2018-12-01 07:58] LABS: ALB/GLOB RATIO 1.4 (1.1-1.8); ALBUMIN 3.8 g/dL (3.0-4.8); ALT/SGPT 14 U/L (7-56); AST/SGOT 17 U/L (17-59); BLOOD UREA NITROGEN 17 mg/dL (7-21); CALCIUM 8.9 mg/dL (8.4-10.5); GFR NON-AFRICAN AMERICAN > 60
[2018-12-01] MEDS: Insulin Reg-LOW-Coverage SC SCH ×4 (08:00→22:21)
--- NOTE | 2018-12-01 08:30 | RAD ---
HISTORY: pre op clearance COMPARISON: Chest x-ray performed 07/09/18 TECHNIQUE: Chest PA and lateral FINDINGS: LUNGS: No focal consolidation. Please note that chest x-ray has limited sensitivity for the detection of pulmonary masses. PLEURA: No significant pleural effusion identified. No definite pneumothorax . CARDIOVASCULAR: Heart size appears within normal limits. Atherosclerotic calcifications the aortic knob OSSEOUS STRUCTURES: Degenerative changes.. VISUALIZED UPPER ABDOMEN: Mild elevation of the right hemidiaphragm. OTHER FINDINGS: None. IMPRESSION: No focal consolidation.
[2018-12-01] MEDS: Vancomycin 1gm in NS 250ml 1 GM/250 ML BAG IVPB SCH ×2 (10:03→20:17)
[2018-12-01] MEDS: Sodium Chloride 0.9% 1,000 ML IV SCH (10:07)
--- NOTE | 2018-12-01 12:17 | CON ---
DATE OF CONSULTATION: 12/01/2018 CHIEF COMPLAINT: Right groin pain times several days. HISTORY OF PRESENT ILLNESS: This is a 68-year-old male originally from [place], who has a history of a right inguinal hernia for some time and has had repair 2 weeks ago, and in days he has noted that there is a discharge coming out of the surgical site. He denies any nausea, vomiting, fevers and chills. No chest pain. No diarrhea or constipation. PAST MEDICAL HISTORY: Significant for diabetes mellitus. PAST SURGICAL HISTORY: No surgical history except for the recent inguinal hernia repair done on 11/19/2018. ALLERGIES: THE PATIENT HAS NO KNOWN ALLERGIES. MEDICATIONS: Medications at home include metformin. PHYSICAL EXAMINATION: GENERAL: The patient is in bed, in no acute distress, nontoxic. VITAL SIGNS: Temperature of 98, blood pressure is 120/50, respiratory rate of 18, and a heart rate of 77. HEENT: Examination of HEENT is unremarkable. NECK: Supple. LUNGS: Have decreased breath sounds. HEART: Normal S1, S2. ABDOMEN: Soft, nontender. No organomegaly. No rebound. No guarding. No masses. GENITOURINARY: Examination of the right groin reveals mild erythema appears like a small abscess on the skin on exam, no discharge right now. LABORATORY DATA: Laboratory examination reveals a white count of 7000, hemoglobin of 12, platelets of 322. Coagulation is noted. Chemistries noted, his blood sugar is 166. The patient had a CT scan of the pelvis, results are not available and consultation by states that the patient had a repair at the [facility] 10 days ago. Chest x-ray Is reported to be negative. ASSESSMENT AND PLAN: This is a 68-year-old [place] male with diabetes mellitus, status post surgery, now with a right groin abscess post surgery. We will treat the patient with vanco, Maxipime and Flagyl. There is a questionable fistula mentioned on the CT scan, pending for surgical incision and drainage surgical intervention. Waiting for official CT reading. Wound culture has been sent. We will follow with you pending culture results and surgical input. Bart Bolton MD
[2018-12-01] MEDS: Cefepime 1gm in NS 100ml 1 GM/100 ML BAG IVPB SCH ×2 (14:13→21:56)
--- NOTE | 2018-12-01 14:39 | CARD ---
APPROVED REPORT Date of service: 11/30/2018 EKG Measurement Heart [id number] <Conclusion> Normal sinus rhythm Moderate voltage criteria for LVH, may be normal variant Borderline ECG
--- NOTE | 2018-12-01 16:11 | PCM.PROC ---
- Incision & Drainage Of Abscess Anesthesia: Lidocaine 1% Prep Used: Betadine Procedure: Incised W/Scalpel Blade#: (11), Drained Pus (20), Cultures Obtained And Sent To Lab Incision and Drainage - Time Time Performed: 16:08 - Time Out Time Out: Side verified, Site verified, Patient ID confirmed, Sterile procedures obs. - Procedure Procedure-Incision & Drainage: Right inguinal - Consent obtained Consent obtained: Written - Performed by Performed by: Mid-level Provider - Indications Indications: Cutaneous abscess - Contraindications Contraindications: None - Location Location: Right, Inguina/Groin - Dimensions Dimensions Length cm: 2 Dimensions width cm: 2 - Anesthetic Technique Anesthetic Technique: Local - Anesthetic Anesthetic: Lidocaine 1% - Procedure Procedure: Usual prep and drape, cm incision (2), Overlying area fluctuance, # scalpel used (11) - Drained Drained: ml serosanguinous fluid (20) - Post-procedure Post procedure: Dressed - Complications Complications: None - Patient tolerated procedure Patient tolerated procedure: Well
--- NOTE | 2018-12-01 16:11 | CT ---
Date of service: 11/30/2018 CT pelvis without IV contrast Indication: right groin collection? Technique: Contiguous axial images of the pelvis. Oral contrast was administered. No IV contrast given. Coronal and Sagittal reformats generated and reviewed. This CT exam was performed using 1 or more of the following dose reduction techniques: Automated exposure control, adjustment of the MAA and/or kV according to patient size, and/or use of iterative reconstruction technique. Radiation dose: Total exam DLP = 285.39 mGy-cm. Comparison: None available Findings: Right inguinal collection is identified measuring approximately 3.3 x 4.6 cm (series 2, image 52). This finding appears to communicate with the right rectus muscle which demonstrates a few punctate foci of air. More superficially at this level there is a region of suspected phlegmon measuring up approximately 1.1 x 2.0 cm also with small focus of air. Enterocutaneous fistula and small subcutaneous abscess/phlegmon may be considered. The bowel loops appear within normal limits of caliber without evidence of intestinal obstruction. There is no definite free air. The prostate gland measures approximately 4.5 x 5.6 cm. The urinary bladder appears unremarkable. 9 mm sclerotic focus within the right femoral head, possibly bone island. Degenerative changes of the included lumbar spine. Impression: Right inguinal collection is identified measuring approximately 3.3 x 4.6 cm. This finding appears to communicate with the right rectus muscle which demonstrates a few punctate foci of air. More superficially at this level there is a region of suspected phlegmon measuring up approximately 1.1 x 2.0 cm also with small focus of air. Enterocutaneous fistula and small subcutaneous abscess/phlegmon may be considered. Correlate clinically. Enlarged prostate gland. Recommend correlation with PSA.
[2018-12-02] MEDS: Pantoprazole 40 mg EC Tab PO SCH (05:58)
[2018-12-02] MEDS: Cefepime 1gm in NS 100ml 1 GM/100 ML BAG IVPB SCH ×2 (05:58→13:00)
[2018-12-02 07:00] LABS: BASO # 0.03 K/mm3 (0.0-2.0); BASO % 0.4 % (0.0-3.0); EOS # 0.2 (0.0-0.7); EOS % 3.2 % (1.5-5.0); HEMOGLOBIN 12.2 g/dL (14.0-18.0); LYMPH % 27.3 % (22.0-35.0); MEAN CELL VOLUME 89.9 fl (80.0-105.0); MEAN CORPUSCULAR HEMOGLOBIN 29.5 pg (25.0-35.0); MEAN CORPUSCULAR HGB CONC 32.8 g/dl (31.0-37.0); MEAN PLATELET VOLUME 9.4 fl (7.0-11.0); MONO # 0.5 (0.1-0.6); MONO % 6.5 % (1.0-6.0); RBC 4.14 10^6/uL (3.5-6.1); WHITE BLOOD COUNT 7.2 10^3/uL (4.5-11.0)
--- NOTE | 2018-12-02 07:58 | CP.PCM.PN ---
Subjective - Date & Time of Evaluation Date of Evaluation: 12/02/18 Time of Evaluation: 07:15 - Subjective Subjective: General Surgery Progress note for Dr. Jansen Patient seen and examined this am at bedside. No acute events overnight. Denies abdominal pain, n/v, f/c. no other complaints at this time. Objective - Vital Signs/Intake and Output Vital Signs (last 24 hours): Temp Pulse Resp BP Pulse Ox 98.1 F 61 20 113/71 98 12/01/18 22:00 12/01/18 22:00 12/01/18 22:00 12/01/18 22:00 12/01/18 22:00 Intake and Output: 12/02/18 12/02/18 06:59 18:59 Intake Total 2400 Balance 2400 - Medications Medications: Current Medications Acetaminophen (Tylenol 325mg Tab) 650 mg PO Q6H PRN PRN Reason: Pain, Mild (1-3) Last Admin: 12/01/18 20:17 Dose: 650 mg Sodium Chloride (Sodium Chloride 0.9%) 1,000 mls @ 100 mls/hr IV .Q10H [facility] Last Admin: 12/01/18 10:07 Dose: 100 mls/hr Vancomycin HCl (Vancomycin 1gm) 1 gm in 250 mls @ 167 mls/hr IVPB Q12H [facility]; Protocol Last Admin: 12/01/18 20:17 Dose: 167 mls/hr Cefepime HCl (Maxipime 1gm) 1 gm in 100 mls @ 100 mls/hr IVPB Q8 [facility]; Protocol Stop: 12/09/18 14:01 Last Admin: 12/02/18 05:58 Dose: 100 mls/hr Insulin Human Regular (Humulin R Low) 0 units SC ACHS [facility]COL[facility]; Protocol Last Admin: 12/01/18 22:21 Dose: Not Given Metronidazole (Flagyl) 500 mg PO Q8 [facility]; Protocol Stop: 12/08/18 14:01 Last Admin: 12/02/18 05:58 Dose: 500 mg Pantoprazole Sodium (Protonix Ec Tab) 40 mg PO 0600 [facility] Last Admin: 12/02/18 05:58 Dose: 40 mg - Labs Labs: 12/02/18 06:20 12/01/18 07:00 PT 11.3 SECONDS (9.4-12.5) 11/30/18 17:00 INR 1.02 11/30/18 17:00 APTT 33.3 Seconds (26.9-38.3) 11/30/18 17:00 - Constitutional Appears: Well, Non-toxic, No Acute Distress - Head Exam Head Exam: ATRAUMATIC - Eye Exam Eye Exam: EOMI - ENT Exam ENT Exam: Mucous Membranes Moist - Respiratory Exam Respiratory Exam: NORMAL BREATHING PATTERN - Cardiovascular Exam Cardiovascular Exam: REGULAR RHYTHM - GI/Abdominal Exam GI & Abdominal Exam: Soft. absent: Guarding, Tenderness Additional comments: incision clean and dry with minimal seropurulent discharge on dressing - Extremities Exam Extremities Exam: absent: Calf Tenderness - Neurological Exam Neurological Exam: Alert, Awake, Oriented x3 - Psychiatric Exam Psychiatric exam: Normal Affect, Normal Mood - Skin Skin Exam: Dry, Normal Color, Warm Assessment and Plan - Assessment and Plan (Free Text) Assessment: 68 M POD 14 from R inguinal hernia repair s/p I&D of abscess POD 1 Plan: - pt clear for D/C from surgical standpoint - recommend clindamycin and Augmentin 7-10 days - patient will need to follow up with his primary surgeon Dr. Alvares within 5-7 days of discharge - discussed with Dr. Justyna Ga, PGY 1
[2018-12-02 08:03] LABS: ALB/GLOB RATIO 1.4 (1.1-1.8); ALBUMIN 3.8 g/dL (3.0-4.8); ALT/SGPT 13 U/L (7-56); AST/SGOT 23 U/L (17-59); BLOOD UREA NITROGEN 15 mg/dL (7-21); GFR NON-AFRICAN AMERICAN > 60
[2018-12-02] MEDS: Insulin Reg-LOW-Coverage SC SCH ×3 (08:08→17:39)
[2018-12-02] MEDS: Vancomycin 1gm in NS 250ml 1 GM/250 ML BAG IVPB SCH (10:05)
--- NOTE | 2018-12-02 12:46 | PN ---
DATE: 12/02/2018 SUBJECTIVE: The patient is seen in room 567, bed 2. He is awake, alert, doing well. PHYSICAL EXAMINATION: VITAL SIGNS: Temperature is 98, blood pressure is 113/60, respiratory rate of 18. HEENT: Unremarkable. NECK: Supple. LUNGS: Have decreased breath sounds. HEART: Normal S1 and S2. ABDOMEN: Soft. LABORATORY EXAMINATION: Reveals a white count of 7.2 and hemoglobin of 12. Chemistries are noted. Microbiology reveals coag-negative Staph from the groin. The blood cultures are negative and abdominal cultures are negative. Review of orders reveals the patient to be on vancomycin and cefepime and Flagyl. note is reviewed. Dr. Thaddeus Jansen's progress note is also reviewed . ASSESSMENT AND PLAN: This is a 68-year-old [place] male with diabetes mellitus, status post surgery with right groin abscess surgery, on vancomycin, Maxipime, Flagyl; questionable fistula, coagulase-negative Staphylococcus from the wound culture. May consider Augmentin and doxycycline to complete therapy as outpatient. Bart Bolton MD
--- NOTE | 2018-12-02 13:10 | CP.PCM.DIS ---
<Jose Pratt - Last Filed: 12/02/18 14:54> Provider - Provider Date of Admission: 11/30/18 19:44 Attending physician: Laurence Dietz MD Primary care physician: JAYNE FAMILY PROVIDER Consults: 11/30/18 15:35 Consult [Physician Consult] Stat Comment: Consulting Provider: Thaddeus Jansen Consulting Physician: Thaddeus Jansen Reason for Consult: post-op wound discharge 12/01/18 07:46 Infectious Disease Consult Routine Comment: Consulting Provider: Jeremy Crawford Consulting Physician: Jeremy Crawford Reason for Consult: Pelvic abscess s/p right inguinal hernia repair Time Spent in preparation of Discharge (in minutes): 35 Hospital Course - Lab Results Lab Results: Micro Results 11/30/18 23:30 Groin Gram Stain - Final 11/30/18 23:30 Groin Wound Culture - Final Coagulase Neg Staphylococcus 12/01/18 14:50 Abdomen Gram Stain - Final 12/01/18 14:50 Abdomen Wound Culture - Preliminary NO GROWTH AFTER 24 HOURS 11/30/18 16:30 Blood-Venous Blood Culture - Preliminary NO GROWTH AFTER 24 HOURS 11/30/18 16:00 Blood-Venous Blood Culture - Preliminary NO GROWTH AFTER 24 HOURS Most Recent Lab Values WBC 7.2 10^3/uL (4.5-11.0) 12/02/18 06:20 RBC 4.14 10^6/uL (3.5-6.1) 12/02/18 06:20 Hgb 12.2 g/dL (14.0-18.0) L 12/02/18 06:20 Hct 37.2 % (42.0-52.0) L 12/02/18 06:20 MCV 89.9 fl (80.0-105.0) 12/02/18 06:20 MCH 29.5 pg (25.0-35.0) 12/02/18 06:20 MCHC 32.8 g/dl (31.0-37.0) 12/02/18 06:20 RDW 13.0 % (11.5-14.5) 12/02/18 06:20 Plt Count 320 10^3/uL (120.0-450.0) 12/02/18 06:20 MPV 9.4 fl (7.0-11.0) 12/02/18 06:20 Neut % (Auto) 62.6 % (50.0-68.0) 12/02/18 06:20 Lymph % (Auto) 27.3 % (22.0-35.0) 12/02/18 06:20 [place] % (Auto) 6.5 % (1.0-6.0) H 12/02/18 06:20 Eos % (Auto) 3.2 % (1.5-5.0) 12/02/18 06:20 Baso % (Auto) 0.4 % (0.0-3.0) 12/02/18 06:20 Lymph # (Auto) 2.0 (1.2-3.4) 12/02/18 06:20 [place] # (Auto) 0.5 (0.1-0.6) 12/02/18 06:20 Eos # (Auto) 0.2 (0.0-0.7) 12/02/18 06:20 Baso # (Auto) 0.03 K/mm3 (0.0-2.0) 12/02/18 06:20 Absolute Neuts (auto) 4.50 (1.4-6.5) 12/02/18 06:20 PT 11.3 SECONDS (9.4-12.5) 11/30/18 17:00 INR 1.02 11/30/18 17:00 APTT 33.3 Seconds (26.9-38.3) 11/30/18 17:00 Sodium 138 mmol/L (132-148) 12/02/18 06:20 Potassium 4.6 mmol/L (3.6-5.0) 12/02/18 06:20 Chloride 103 mmol/L (98-107) 12/02/18 06:20 Carbon Dioxide 29 mmol/L (21-33) 12/02/18 06:20 Anion Gap 10 (10-20) 12/02/18 06:20 BUN 15 mg/dL (7-21) 12/02/18 06:20 Creatinine 0.8 mg/dl (0.8-1.5) 12/02/18 06:20 Est GFR ( Amer) > 60 12/02/18 06:20 Est GFR (Non-Af Amer) > 60 12/02/18 06:20 POC Glucose (mg/dL) 110 mg/dL (65-110) 12/02/18 10:51 Random Glucose 169 mg/dL (70-110) H 12/02/18 06:20 Calcium 9.0 mg/dL (8.4-10.5) 12/02/18 06:20 Phosphorus 3.7 mg/dL (2.5-4.5) 12/01/18 07:00 Magnesium 2.1 mg/dL (1.7-2.2) 12/01/18 07:00 Total Bilirubin 1.3 mg/dL (0.2-1.3) 12/02/18 06:20 AST 23 U/L (17-59) 12/02/18 06:20 ALT 13 U/L (7-56) 12/02/18 06:20 Alkaline Phosphatase 73 U/L (38-126) 12/02/18 06:20 Total Protein 6.5 g/dL (5.8-8.3) 12/02/18 06:20 Albumin 3.8 g/dL (3.0-4.8) 12/02/18 06:20 Globulin 2.7 gm/dL 12/02/18 06:20 Albumin/Globulin Ratio 1.4 (1.1-1.8) 12/02/18 06:20 - Hospital Course Hospital Course: 68 year old [place] Speaking Male with a PMH of DM2 and recent right inguinal hernia repair (~2 weeks prior to presentation) who was admitted for red-colored drainage from post-op site. Patient said he followed up with his surgeon at [facility] (Dr. Alvares) two days prior and there were no issues with his incision si te. 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 I&D was performed by surgical services tech and sample was sent for culture. Culture was light growth staph. Surgery agreeable to patient's discharge. Patient was discharged on Augmentin and Clindamycin, and scripts were provided. Patient's symptoms improved and details were explained to family at bedside, who understand plan. The patient is instructed to follow-up with Dr. Alvares (Surgeon, [facility]) within a week. Discharge Exam - Head Exam Head Exam: ATRAUMATIC, NORMAL INSPECTION - Eye Exam Eye Exam: EOMI, Normal appearance, PERRL Pupil Exam: NORMAL ACCOMODATION, PERRL - ENT Exam ENT Exam: Mucous Membranes Moist, Normal Exam - Neck Exam Neck exam: Full Rom, Normal Inspection - Respiratory Exam Respiratory Exam: Clear to PA & Lateral, NORMAL BREATHING PATTERN. absent: Wheezes - Cardiovascular Exam Cardiovascular Exam: RRR, +S1, +S2 - GI/Abdominal Exam GI & Abdominal Exam: Normal Bowel Sounds, Soft. absent: Distended, Tenderness Additional comments: right inguinal region w/ dressing (Clean/dry/intact) - Extremities Exam Extremities exam: full ROM, normal inspection - Back Exam Back exam: NORMAL INSPECTION - Neurological Exam Neurological exam: Alert, CN II-XII Intact, Normal Gait, Oriented x3, Reflexes Normal - Psychiatric Exam Psychiatric exam: Normal Affect, Normal Mood - Skin Skin Exam: Dry, Intact, Normal Color, Warm Discharge Plan - Discharge Medications Prescriptions: Amoxicillin/Potassium Clav [Augmentin 500-125 Tablet] 1 each PO BID 7 Days #14 tablet Clindamycin [Cleocin] 300 mg PO TID 7 Days #21 cap - Follow Up Plan Condition: STABLE Disposition: HOME/ ROUTINE Instructions: Diabetes Exchange Diet, Carbohydrate Counting Diet, Surgical Wound (DC), Groin Hernia Repair (DC), Preventing Falls, Influenza Virus Vaccine (Inactivated), Pneumococcal Polysaccharide Vaccine (23-Valent), Abscess Drainage, Percutaneous (DC) Additional Instructions: Please follow up with your surgeon, Dr. Alvares within the next 1-2 days for further management. Also follow with your primary medical doctor within 3-5 days. Please keep dressings clean, dry, and intact for 7 days. Please take both antibiotics as prescribed and complete full course. Please take these with yogurt. Resume any home medications and regular diet as tolerated. Activity as tolerated. Over the counter medications for pain. Please take Ibuprofen or other NSAIDS with food. If symptoms worsen, please return to the ED. Referrals: FAMILY PROVIDER,NO [Primary Care Provider] - Oliver Alvares MD [Medical Doctor] - (1-2 days) <Laurence Dietz - Last Filed: 12/02/18 17:31> Provider - Provider Date of Admission: 11/30/18 19:44 Attending physician: Laurence Dietz MD Primary care physician: NO FAMILY PROVIDER Consults: 11/30/18 15:35 Consult [Physician Consult] Stat Comment: Consulting Provider: Thaddeus Jansen Consulting Physician: Thaddeus Jansen Reason for Consult: post-op wound discharge 12/01/18 07:46 Infectious Disease Consult Routine Comment: Consulting Provider: Jeremy Crawford Consulting Physician: Jeremy Crawford Reason for Consult: Pelvic abscess s/p right inguinal hernia repair Hospital Course - Lab Results Lab Results: Micro Results 11/30/18 23:30 Groin Gram Stain - Final 11/30/18 23:30 Groin Wound Culture - Final Coagulase Neg Staphylococcus 12/01/18 14:50 Abdomen Gram Stain - Final 12/01/18 14:50 Abdomen Wound Culture - Preliminary NO GROWTH AFTER 24 HOURS 11/30/18 16:30 Blood-Venous Blood Culture - Preliminary NO GROWTH AFTER 24 HOURS 11/30/18 16:00 Blood-Venous Blood Culture - Preliminary NO GROWTH AFTER 24 HOURS Most Recent Lab Values WBC 7.2 10^3/uL (4.5-11.0) 12/02/18 06:20 RBC 4.14 10^6/uL (3.5-6.1) 12/02/18 06:20 Hgb 12.2 g/dL (14.0-18.0) L 12/02/18 06:20 Hct 37.2 % (42.0-52.0) L 12/02/18 06:20 MCV 89.9 fl (80.0-105.0) 12/02/18 06:20 MCH 29.5 pg (25.0-35.0) 12/02/18 06:20 MCHC 32.8 g/dl (31.0-37.0) 12/02/18 06:20 RDW 13.0 % (11.5-14.5) 12/02/18 06:20 Plt Count 320 10^3/uL (120.0-450.0) 12/02/18 06:20 MPV 9.4 fl (7.0-11.0) 12/02/18 06:20 Neut % (Auto) 62.6 % (50.0-68.0) 12/02/18 06:20 Lymph % (Auto) 27.3 % (22.0-35.0) 12/02/18 06:20 [place] % (Auto) 6.5 % (1.0-6.0) H 12/02/18 06:20 Eos % (Auto) 3.2 % (1.5-5.0) 12/02/18 06:20 Baso % (Auto) 0.4 % (0.0-3.0) 12/02/18 06:20 Lymph # (Auto) 2.0 (1.2-3.4) 12/02/18 06:20 [place] # (Auto) 0.5 (0.1-0.6) 12/02/18 06:20 Eos # (Auto) 0.2 (0.0-0.7) 12/02/18 06:20 Baso # (Auto) 0.03 K/mm3 (0.0-2.0) 12/02/18 06:20 Absolute Neuts (auto) 4.50 (1.4-6.5) 12/02/18 06:20 PT 11.3 SECONDS (9.4-12.5) 11/30/18 17:00 INR 1.02 11/30/18 17:00 APTT 33.3 Seconds (26.9-38.3) 11/30/18 17:00 Sodium 138 mmol/L (132-148) 12/02/18 06:20 Potassium 4.6 mmol/L (3.6-5.0) 12/02/18 06:20 Chloride 103 mmol/L (98-107) 12/02/18 06:20 Carbon Dioxide 29 mmol/L (21-33) 12/02/18 06:20 Anion Gap 10 (10-20) 12/02/18 06:20 BUN 15 mg/dL (7-21) 12/02/18 06:20 Creatinine 0.8 mg/dl (0.8-1.5) 12/02/18 06:20 Est GFR ( Amer) > 60 12/02/18 06:20 Est GFR (Non-Af Amer) > 60 12/02/18 06:20 POC Glucose (mg/dL) 132 mg/dL (65-110) H 12/02/18 15:56 Random Glucose 169 mg/dL (70-110) H 12/02/18 06:20 Calcium 9.0 mg/dL (8.4-10.5) 12/02/18 06:20 Phosphorus 3.7 mg/dL (2.5-4.5) 12/01/18 07:00 Magnesium 2.1 mg/dL (1.7-2.2) 12/01/18 07:00 Total Bilirubin 1.3 mg/dL (0.2-1.3) 12/02/18 06:20 AST 23 U/L (17-59) 12/02/18 06:20 ALT 13 U/L (7-56) 12/02/18 06:20 Alkaline Phosphatase 73 U/L (38-126) 12/02/18 06:20 Total Protein 6.5 g/dL (5.8-8.3) 12/02/18 06:20 Albumin 3.8 g/dL (3.0-4.8) 12/02/18 06:20 Globulin 2.7 gm/dL 12/02/18 06:20 Albumin/Globulin Ratio 1.4 (1.1-1.8) 12/02/18 06:20 Attending/Attestation - Attestation I have personally seen and examined this patient.: Yes I have fully participated in the care of the patient.: Yes I have reviewed all pertinent clinical information, including history, physical exam and plan: Yes Notes (Text): 12/02/18 17:27 Attending note; Patient seen and examined with resident Patient is alert and awake. Denies any fevers, chills. Denies any abdominal pain, nausea, vomiting. Tolerating diet well. Dressing in a right inguinal area. No significant discharge noted. Patient is a 68 year old [place] Speaking Male with a PMH of DM2 and recent right inguinal hernia repair (~2 weeks prior to presentation) who was admitted for red-colored drainage from post-op site. 1. Right inguinal hernia repair; surgical site collection. Status post I&D by surgery. Currently minimal discharge. Continue regular dressing. No package in place. Dressing instructions given . Patient will complete clindamycin and Augmentin. Prescription given. Advised to follow-up with primary surgeon within 3-5 days. 2. Diabetes; continue metformin. Discharge home today. Discharge instructions given. 12/02/18 17:30
[2018-12-02 15:20] VITALS: BP 128/78; PULSE 73; RESP 16; TEMP 98.6; O2SAT 99
== END 2018-12-02 19:25 | disposition home or self-care (01) | DRG 711 ==
LOC: ED 14:17 → ERH 19:44 → 5RNO 23:05
PROVIDERS: ADMIT Hospitalist; ATTEND Internal Medicine
PROC: 0Y950ZZ Drainage of Right Inguinal Region, Open Approach (ICD-10-PCS; principal; 2018-12-01)
DX: T81.41XA Infection following a procedure, superficial incisional surgical site, initial encounter (principal); K63.2 Fistula of intestine; L02.214 Cutaneous abscess of groin; E11.9 Type 2 diabetes mellitus without complications; N40.0 Benign prostatic hyperplasia without lower urinary tract symptoms; B95.7 Other staphylococcus as the cause of diseases classified elsewhere; Z82.49 Family history of ischemic heart disease and other diseases of the circulatory system; Y83.8 Other surgical procedures as the cause of abnormal reaction of the patient, or of later complication, without mention of misadventure at the time of the procedure